=== PATIENT | male | born 1980 | race Caucasian/White ===

== ENCOUNTER 2023-10-06 16:42 | Emergency (ER) | payer OTHER, SELFPAY ==
[2023-10-06] VITALS (24 sets, daily range): BP systolic 110–228; BP diastolic 57–126; PULSE 73–95; TEMP 36.9; O2SAT 90–99; BMI 47.5
--- NOTE | 2023-10-06 16:56 | ECG_ITS ---
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
--- NOTE | 2023-10-06 17:19 | US_ITS ---
The [address] [address] Patient Name: JOE LUNDBERG MRN: [id number] date: 1980 Sex: M Assigned Patient Location: ER Current Patient Location: ED.[facility] Accession/Order Number: [id number] Exam Date: 10/06/2023 17:32 Report Date: 10/06/2023 20:46 At the request of: BERHANE COLLAZO Procedure: US venous doppler LE LT DUPLEX ULTRASOUND LEFT LOWER EXTREMITY: TECHNIQUE: Garcia-scale and Duplex ultrasound was performed of the both the left extremity. FINDINGS: There is normal garcia scale, color, and spectral Doppler of the right and left common femoral, superficial femoral, and popliteal veins. Compressibility was observed at several levels. There is also compressibility within the anterior tibial, posterior tibial and peroneal veins as well as the greater saphenous vein. There was a short segment of noncompressibility of the distal small saphenous vein. There was a normal waveform seen in the right iliac vein. US/US venous doppler LE LT IMPRESSION: 1. No evidence of deep venous thrombosis. 2. There was a noncompressible segment of the small saphenous vein of uncertain significance. A small superficial thrombus cannot be excluded. Electronically authenticated by: SAM BETTS Date: 10/06/2023 20:46
--- NOTE | 2023-10-06 17:20 | ECG_ITS ---
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
[2023-10-06 17:27] LABS: Basophils Absolute Auto 0.1 10^3/uL (0.0-0.1); Basophils Percent Auto 0.5 % (0.2-2.0); Eosinophils Absolute Auto 0.1 10^3/uL (0.0-0.7); Eosinophils Percent Auto 0.7 % (0.9-7.0); Hematocrit 49.3 % (42.0-54.0); Hemoglobin 16.5 g/dL (14.0-18.0); Immature Granulocytes Abs Auto 0.03 10^3/uL (0.00-0.03); Immature Granulocytes Pct Auto 0.3 % (0.0-0.5); Lymphocytes Absolute Auto 3.7 10^3/uL (1.2-3.8); Lymphocytes Percent Auto 32.8 % (20.5-60.0); Mean Corpuscular HGB Conc 33.5 g/dL (29.9-35.2); Mean Corpuscular Hemoglobin 30.9 pg (25.9-34.0); Mean Corpuscular Volume 92.3 fL (80.0-94.0); Mean Platelet Volume 10.5 fL (9.5-13.5); Monocytes Absolute Auto 0.6 10^3/uL (0.3-0.8); Monocytes Percent Auto 5.5 % (1.7-12.0); Neutrophils Absolute Auto 6.8 10^3/uL (1.4-6.5); Neutrophils Percent Auto 60.2 % (43.0-75.0); Platelet Count 289 10^3/uL (150-450); Red Blood Count 5.34 10^6/uL (4.70-6.10); Red Cell Distribution Width 14.3 % (11.0-15.0); White Blood Count 11.3 10^3/uL (4.0-11.0)
[2023-10-06] MEDS: 0.9 % SODIUM CHLORIDE 1,000 ML 999 ML IV (17:34)
[2023-10-06 17:49] LABS: Alanine Aminotransferase 39 U/L (16-63); Albumin Globulin Ratio 0.9; Albumin Level 4.1 g/dL (3.4-5.0); Alkaline Phosphatase 92 U/L (46-116); Anion Gap 13.9; Aspartate Amino Transferase 21 U/L (15-37); BUN Creatinine Ratio 9.1; Bilirubin Total 0.4 mg/dL (0.2-1.0); Calcium 9.5 mg/dL (8.5-10.1); Carbon Dioxide 27.2 mmol/L (21.0-32.0); Chloride 99 mmol/L (98-107); Estimated GFR (African America >60 (>=60); Estimated GFR (Non-African Ame >60 (>=60); Globulin 4.8 g/dL; Glucose 90 mg/dL (74-106); Magnesium 2.1 mg/dL (1.8-2.4); Potassium 4.1 mmol/L (3.5-5.1); Sodium 136 mmol/L (136-145); Total Protein 8.9 g/dL (6.4-8.2)
[2023-10-06 17:54] LABS: Acetaminophen <2.0 ug/mL (10.0-30.0); Uric Acid 8.5 mg/dL (3.5-7.2)
[2023-10-06] MEDS: METHYLPREDNISOLONE SOD SUCC PF 125 MG/2 ML VIAL IVP (18:36)
[2023-10-06] MEDS: KETOROLAC TROMETHAMINE 30 MG/ML VIAL 15 MG IVP (18:37)
--- NOTE | 2023-10-06 20:16 | ED.LOWEXI1 ---
HPI HPI - Extremity Injury (Lower) General Chief Complaint: Weakness Stated Complaint: LOwer EXTREMITY PAIN Time Seen by Provider: 10/06/23 16:56 Source: patient and friend (Significant other) Mode of arrival: walk-in Limitations: no limitations History of Present Illness HPI Narrative: 43-year-old male presents to the emergency department significant other with complaint of left leg pain. Locating pain throughout the knee and to the back of his thigh. Onset a week and a half ago. History of gout and states that the symptoms are similar. However, has had some generalized weakness and malaise. Worried he has been taking too much Motrin and Tylenol. States he woke up with the pain. Denies any blunt trauma, motor or sensory changes, paresthesias Quality:?As above Severity:?Moderate Timing:?As above, constant Context: Normal setting and activity? Modifying factors:?Worse with palpation, movement Associated symptoms: Swelling Related Data Previous Rx's ?Medication ?Instructions ?Recorded colchicine 0.6 mg capsule 0.6 mg PO Q1H #3 caps 10/06/23 hydrocodone 5 mg-acetaminophen 325 1 tab PO Q8H PRN pain #6 tabs 10/06/23 mg tablet lisinopril 10 1 tab PO DAILY #30 tabs 10/06/23 mg-hydrochlorothiazide 12.5 mg tablet prednisone 50 mg tablet 50 mg PO DAILY 7 days #7 tabs 10/06/23 Allergies Allergy/AdvReac Type Severity Reaction Status Date / Time No Known Drug Allergies Allergy Verified 10/06/23 16:47 Opioid HPI Opioid Management Most Recent Pain and Opioid Data: Last MAY Pain Assessment 10/06/23 18:37 Review of Systems ROS Constitutional Denies: fatigue or malaise Cardiovascular Denies: chest pain or palpitations Respiratory Denies: shortness of breath Musculoskeletal Reports: extremity pain, joint pain and joint swelling Neurological Denies: numbness in extremities or weakness in extremities Endocrine Denies: fatigue Exam Constitutional Vital Signs, click to edit/add: Last Vital Signs Temp 98.4 F 10/06/23 16:47 Pulse 76 10/06/23 19:40 Resp 13 10/06/23 19:30 BP 110/57 10/06/23 19:01 Pulse Ox 96 10/06/23 19:50 O2 Del Method Room Air 10/06/23 16:47 Common normals: no apparent distress, oriented x3 and alert General appearance: well developed Respiratory Common normals: normal respiratory effort and clear to auscultation bilaterally Effort & inspection: able to speak in complete sentences Cardio Common normals: regular rate, regular rhythm and no murmurs Peripheral pulses: dorsalis pedis pulses present bilateral Extremity Other: Left leg: Patient has diffuse, mild tenderness circumferentially around the knee and to the posterior hamstring region. There may be slight increased swelling to this area. No tenderness to the remainder of the leg.? No ecchymosis, discoloration, crepitus, deformity, instability, warmth.? ROM full flexion extension.? Strength 5/5 Neuro Common normals: oriented x3, no focal motor deficits and no sensory deficits noted Sensorium/orientation: alert Psych Common normals: mental status grossly normal and thought process normal Thought process: normal thought process Course Reevaluation(s) Reevaluation #1: There was some improvement in pain with treatment. However somewhat returned. Discussed with patient and significant other results, plan, and disposition. They are agreeable with plan for Time: 20:26 Vital Signs Vital signs: Vital Signs Temperature 98.4 F 10/06/23 16:47 Pulse Rate 92 H 10/06/23 16:47 Respiratory Rate 18 10/06/23 16:47 Blood Pressure 228/126 H 10/06/23 16:47 Pulse Oximetry 99 10/06/23 16:47 Oxygen Delivery Method Room Air 10/06/23 16:47 Temperature 98.4 F 10/06/23 16:47 Pulse Rate 76 10/06/23 19:40 Respiratory Rate 13 10/06/23 19:30 Blood Pressure 110/57 10/06/23 19:01 Pulse Oximetry 96 10/06/23 19:50 Oxygen Delivery Method Room Air 10/06/23 16:47 MDM - Extremity Injury (Lower) MDM Narrative Medical decision making narrative: This is a pleasant 43-year-old male who presented to the emergency department complaint of left knee pain. Woke up with the pain about a week and a half ago. Symptoms similar to prior gout flareups. Has been taking a lot of Tylenol and Motrin at home without relief. Denies any injury, motor or sensory changes, paresthesias. On arrival, afebrile, hypertensive, otherwise vital signs are stable. On exam, nontoxic, well-appearing patient in no distress. He has diffuse tenderness circumferentially to the knee with some mild swelling. Also has some tenderness over the distal hamstring muscle. Range of motion full. MSPs intact. No rashes noted. Labs reveal no leukocytosis, anemia, thrombocytopenia, electrolyte imbalance, renal impairment. Uric acid 8.5. Glucose 90. LFTs unremarkable. Acetaminophen level not detected. Ultrasound imaging, per radiologist reveals no acute findings. Pain treated in the emergency department with Toradol and Solu-Medrol. Had some temporary relief. Favor gouty arthritis, elevated blood pressure reading DVT less likely based on imaging Fracture less likely based on history and physical Discussed with patient his elevated blood pressure. Patient states he is currently out on cline and any type of medicines he will be receiving via prescription or in the hospital needs to be put on paper, as well as, rationale for him needing them. This was done. With the Tylenol Motrin not helping at home, patient be started on [place]. He will also be given prednisone, colchicine and started on lisinopril/hydrochlorothiazide. He was given name and phone number of primary care provider to follow-up with. Disposition ? The patient was discharged. Plan: Patient will be discharged to home. Condition at time of disposition: stable ? Advised to follow up with primary provider. Advised to return for any worsening and/or development of new, concerning signs or symptoms PLEASE NOTE: Portions of the medical record may have been produced using electronic wage hand and may contain errors with respect to translation of words which may not have been identified prior to finalization of the chart. Medical Records Attestation: I reviewed the patient's medical records. Lab Data Attestation: I reviewed the patient's lab results. Labs: Lab Results 10/06/23 Range/Units 17:00 WBC 11.3 H (4.0-11.0) 10^3/uL RBC 5.34 (4.70-6.10) 10^6/uL Hgb 16.5 (14.0-18.0) g/dL Hct 49.3 (42.0-54.0) % MCV 92.3 (80.0-94.0) fL MCH 30.9 (25.9-34.0) pg MCHC 33.5 (29.9-35.2) g/dL RDW 14.3 (11.0-15.0) % Plt Count 289 (150-450) 10^3/uL MPV 10.5 (9.5-13.5) fL Neut % (Auto) 60.2 (43.0-75.0) % Lymph % (Auto) 32.8 (20.5-60.0) % [place] % (Auto) 5.5 (1.7-12.0) % Eos % (Auto) 0.7 L (0.9-7.0) % Baso % (Auto) 0.5 (0.2-2.0) % Neut # (Auto) 6.8 H (1.4-6.5) 10^3/uL Lymph # (Auto) 3.7 (1.2-3.8) 10^3/uL [place] # (Auto) 0.6 (0.3-0.8) 10^3/uL Eos # (Auto) 0.1 (0.0-0.7) 10^3/uL Baso # (Auto) 0.1 (0.0-0.1) 10^3/uL Abs Immat Gran (auto) 0.03 (0.00-0.03) 10^3/uL Imm/Tot Granulo (auto) 0.3 (0.0-0.5) % Sodium 136 (136-145) mmol/L Potassium 4.1 (3.5-5.1) mmol/L Chloride 99 (98-107) mmol/L Carbon Dioxide 27.2 (21.0-32.0) mmol/L Anion Gap 13.9 BUN 11.0 (7.0-18.0) mg/dL Creatinine 1.21 (0.70-1.30) mg/dL Est GFR ( Amer) >60 (>=60) Est GFR (Non-Af Amer) >60 (>=60) BUN/Creatinine Ratio 9.1 Glucose 90 (74-106) mg/dL Uric Acid 8.5 H (3.5-7.2) mg/dL Calcium 9.5 (8.5-10.1) mg/dL Magnesium 2.1 (1.8-2.4) mg/dL Total Bilirubin 0.4 (0.2-1.0) mg/dL AST 21 (15-37) U/L ALT 39 (16-63) U/L Alkaline Phosphatase 92 (46-116) U/L Total Protein 8.9 H (6.4-8.2) g/dL Albumin 4.1 (3.4-5.0) g/dL Globulin 4.8 g/dL Albumin/Globulin Ratio 0.9 Acetaminophen <2.0 L (10.0-30.0) ug/mL Imaging Data Venous US: Radiologist's impression: ITS Impressions Venous Doppler Study 10/06/23 17:19 IMPRESSION: 1. No evidence of deep venous thrombosis. 2. There was a noncompressible segment of the small saphenous vein of uncertain significance. A small superficial thrombus cannot be excluded. Electronically authenticated by: SAM BETTS Date: 10/06/2023 20:06 Discharge Plan Discharge Stand Alone Forms: C Discharge Instructions, Portal Instructions Chief Complaint: Weakness Clinical Impression: Elevated blood pressure reading Gout Qualifiers: Gout site: knee Gout etiology: idiopathic Chronicity: acute Laterality: left Qualified Code(s): M10.062 - Idiopathic gout, left knee Patient Disposition: Home, Self-Care Time of Disposition Decision: 20:31 Condition: Good Mode of Transportation: Private Vehicle Prescriptions / Home Meds: New hydrocodone-acetaminophen 5-325 mg tablet 1 tab PO Q8H PRN (Reason: pain) Qty: 6 0RF colchicine 0.6 mg capsule 0.6 mg PO Q1H Qty: 3 0RF Rx Instructions: Double 1st dose (1.2mg), then take 2nd dose one hour later prednisone 50 mg tablet 50 mg PO DAILY 7 Days Qty: 7 0RF lisinopril-hydrochlorothiazide 10-12.5 mg tablet 1 tab PO DAILY Qty: 30 0RF Print Language: Upper Sorbian Instructions: Low Purine Diet (ED), Gout (ED), Hypertension (ED) Referrals: Alec Severino MD [Physician] - 1 week
[2023-10-06] MEDS: HYDROCODONE/ACET 5-325 MG TABLET 1 TAB PO (20:57)
== END 2023-10-06 21:15 | disposition home or self-care (01) ==
PROVIDERS: Physician Assistant; Emergency Provider Emergency Medicine
DX: M10.062 Idiopathic gout, left knee (principal); I10 Essential (primary) hypertension
CPT/HCPCS: 36415; 80053; 80329; 83735; 84550; 85025; 93005; 93971; 96374; 96375; 99285; J1885; J2919

== ENCOUNTER 2023-11-17 15:39 | Emergency (ER) | payer OTHER, SELFPAY ==
[2023-11-17 15:43] VITALS: BP 170/102; PULSE 104; TEMP 36.5; O2SAT 98; BMI 47.4
--- NOTE | 2023-11-17 16:01 | ED_ITS ---
HPI HPI - General Adult General Chief complaint: Extremity Problem, Nontraumatic Stated complaint: Lower Pain Time Seen by Provider: 11/17/23 15:42 Source: patient Mode of arrival: walk-in History of Present Illness HPI narrative: Patient presents to ED complaining of gout symptoms. He has a strong history of gout and he has had gout ever since he was about 17 years old. He said it started in his Right elbow and that is gotten better but now it is in his Right knee ankle and Big toe. Patient states he was here recently for similar and it got better but now it is flared up again. He said it was in the left knee and today it is bothering him more on the right. No trauma no fall. No fevers. Patient said colchicine and steroids usually work for him but he does not have any left. His blood pressure slightly elevated on arrival and he states he has not taken his daily medication yet. He did have his amlodipine with him so I told him to take a dose now. He has no chest pain headache or shortness of breath. Related Data Previous Rx's ?Medication ?Instructions ?Recorded colchicine 0.6 mg capsule 0.6 mg PO Q1H #3 caps 10/06/23 hydrocodone 5 mg-acetaminophen 325 1 tab PO Q8H PRN pain #6 tabs 10/06/23 mg tablet lisinopril 10 1 tab PO DAILY #30 tabs 10/06/23 mg-hydrochlorothiazide 12.5 mg tablet prednisone 50 mg tablet 50 mg PO DAILY 7 days #7 tabs 10/06/23 colchicine 0.6 mg capsule 0.6 mg PO DAILY #7 caps 11/17/23 methylprednisolone 4 mg tablets in 4 mg PO DAILY #21 ea 11/17/23 a dose pack (Medrol (Garth)) oxycodone-acetaminophen 5 mg-325 1 tab PO Q6H #10 tabs 11/17/23 mg tablet (Percocet) Allergies Allergy/AdvReac Type Severity Reaction Status Date / Time No Known Drug Allergies Allergy Verified 10/06/23 16:47 Opioid HPI Opioid Management Most Recent Opioid Data: No Data to Display Review of Systems ROS Status of ROS 10 or more systems reviewed and unremark able except as noted in history and below Exam Narrative Exam Narrative: General: alert, no acute distress Cardiovascular: regular rate and rhythm, normal peripheral perfusion. Respiratory: Lungs CTA, respirations non labored. Extremities: no deformity, no trauma. Patient reports some mild tenderness in the right elbow right knee and right great toe. Right great toe slightly swollen at the joint. Mild tenderness with range of motion of these joints. No calf tenderness. Normal distal pulses and sensation. Patient was ambulatory in ED Neurological: oriented x 4, LOC appropriate for age. Constitutional Vital Signs, click to edit/add: Last Vital Signs Temp 97.7 F 11/17/23 15:43 Pulse 104 H 11/17/23 15:43 Resp 20 11/17/23 15:43 BP 170/102 H 11/17/23 15:43 Pulse Ox 98 11/17/23 15:43 O2 Del Method Room Air 11/17/23 15:43 Course Vital Signs Vital signs: Vital Signs Temperature 97.7 F 11/17/23 15:43 Pulse Rate 104 H 11/17/23 15:43 Respiratory Rate 20 11/17/23 15:43 Blood Pressure 170/102 H 11/17/23 15:43 Pulse Oximetry 98 11/17/23 15:43 Oxygen Delivery Method Room Air 11/17/23 15:43 Temperature 97.7 F 11/17/23 15:43 Pulse Rate 104 H 11/17/23 15:43 Respiratory Rate 20 11/17/23 15:43 Blood Pressure 170/102 H 11/17/23 15:43 Pulse Oximetry 98 11/17/23 15:43 Oxygen Delivery Method Room Air 11/17/23 15:43 Medical Decision Making MDM Narrative Medical decision making narrative: Patient given colchicine for gout treatment as well as Percocet for pain and steroids. Please follow-up with family doctor, he reports he Just got all the paperwork in for a new nurse practitioner and should be able to get an appointment soon. Return to ED if worsening symptoms or any further concerns. Differential Diagnosis Differential Diagnosis: Gout, cellulitis, sprain strain Medical Records Medical records reviewed: Yes I reviewed the patient's medical records Discharge Plan Discharge Stand Alone Forms: Work/School Release, Portal Instructions Chief Complaint: Extremity Problem, Nontraumatic Clinical Impression: Gout Qualifiers: Gout site: knee Gout etiology: idiopathic Chronicity: acute Laterality: left Qualified Code(s): M10.062 - Idiopathic gout, left knee Patient Disposition: Home, Self-Care Time of Disposition Decision: 15:53 Condition: Fair Mode of Transportation: Private Vehicle Prescriptions / Home Meds: New colchicine 0.6 mg capsule 0.6 mg PO DAILY Qty: 7 0RF Rx Instructions: take one tab at first sign of gout. take one daily x 3 days after that oxycodone-acetaminophen [Percocet] 5-325 mg tablet 1 tab PO Q6H Qty: 10 0RF methylprednisolone [Medrol (Garth)] 4 mg tablets,dose pack 4 mg PO DAILY Qty: 21 0RF No Action hydrocodone-acetaminophen 5-325 mg tablet 1 tab PO Q8H PRN (Reason: pain) Qty: 6 0RF colchicine 0.6 mg capsule 0.6 mg PO Q1H Qty: 3 0RF Rx Instructions: Double 1st dose (1.2mg), then take 2nd dose one hour later prednisone 50 mg tablet 50 mg PO DAILY 7 Days Qty: 7 0RF lisinopril-hydrochlorothiazide 10-12.5 mg tablet 1 tab PO DAILY Qty: 30 0RF Print Language: Afghan Instructions: Gout (ED) Referrals: Physician,Non-Staff, MD [Primary Care Provider] - 1 week
== END 2023-11-17 16:14 | disposition home or self-care (01) ==
PROVIDERS: Emergency Provider Emergency Medicine
DX: M10.062 Idiopathic gout, left knee (principal)
CPT/HCPCS: 99283